=== PATIENT | female | born 1960 | race Caucasian/White ===

== ENCOUNTER 2016-05-25 17:32 | Emergency (ER) | payer OTHER ==
--- NOTE | 2016-05-25 17:35 | PDOC ---
History of Present Illness <Ct Stock - Last Filed: 05/25/16 18:59> - General History Source: EMS, Family Exam Limitations: Clinical Condition - History of Present Illness Initial Comments: 05/25/16 18:48 Patient seen and evaluated immediately upon arrival. 55-year-old female with history of diabetes, hypertension, hyperlipidemia, end- stage renal disease on hemodialysis Sunday/Sunday/Sunday, brought in by EMS for sudden onset of confusion and speech difficulty that occurred between 12:30 PM and 4 PM in the afternoon on the day of arrival. No trauma is reported. Patient was noted to have difficulty following commands and communicating with family members and emergency providers. REVIEW OF SYSTEMS Unable to obtain due to patient's clinical condition EXAMINATION CONSTITUTIONAL: Awake, alert, morbidly obese, does not follow commands HEAD: Normocephalic; atraumatic EYES: PERRL; patient is able to track MDs face ENMT: + Significant soft tissue swelling of the left side of the face (known to be old); normal oropharynx NECK: Supple; non-tender; no JVD CARD: Normal S1, S2; no murmurs, rubs, or gallops RESP: Normal chest excursion with respiration; breath sounds clear and equal bilaterally; no wheezes, rhonchi, or rales ABD: Soft, non-distended; non-tender; no palpable organomegaly, no palpable hernias EXT: Normal ROM in all four extremities; non-tender to palpation; distal pulses intact SKIN: Warm, dry, no rash NEURO: Patient is awake and alert; + receptive and expressive aphasia; no pronation drift; patient is noted to be moving all extremities spontaneously; motor is 5 of 54; gait-deferred. <Fabiano Corbett - Last Filed: 05/25/16 19:05> - General Stated Complaint: STROKE Time Seen by Provider: 05/25/16 17:34 Past History <Ct Stock - Last Filed: 05/25/16 18:59> <Fabiano Corbett - Last Filed: 05/25/16 19:05> - Past Medical History Allergies/Adverse Reactions: Allergies Allergy/AdvReac Type Severity Reaction Status Date / Time No Known Allergies Allergy Verified 05/25/16 17:53 Home Medications: Ambulatory Orders Aspirin [ASA -] 81 mg PO DAILY 05/25/16 Clopidogrel Bisulfate [Plavix -] 75 mg PO DAILY 05/25/16 Furosemide [Lasix] 0 mg PO DAILY 05/25/16 Glipizide [Glipizide ER] 0 mg PO DAILY 05/25/16 Isosorbide Mononitrate [Imdur] 0 mg PO DAILY 05/25/16 Metoprolol Succinate [Toprol Xl] 0 mg PO DAILY 05/25/16 Oxycodone HCl 0 mg PO PRN PRN 05/25/16 Rosuvastatin Calcium [Crestor] 0 mg PO DAILY 05/25/16 Heart Score/ECG Review #1 ECG reviewed & interpreted by me at: 17:54 (Vent Rate: 79 bpm. Normal sinus rhythm. Left anterior fascicular block. Voltage criteria for left ventricular hypertrophy. T wave abnormality, consider lateral ischemia. Prolonged QT. ) <Ct Stock - Last Filed: 05/25/16 18:59> ED Treatment Course - LABORATORY CBC & Chemistry Diagram: 05/25/16 18:01 05/25/16 18:01 <Ct Stock - Last Filed: 05/25/16 18:59> - LABORATORY CBC & Chemistry Diagram: 05/25/16 18:01 05/25/16 18:01 <Fabiano Corbett - Last Filed: 05/25/16 19:05> Medical Decision Making - Critical Care Time Total Critical Care Time (minutes): 35 Critical Care Statement: The care of this patient involved high complexity decision making to prevent further life threatening deterioration of the patient 's condition and/or to evalute & treat vital organ system(s) failure or risk of failure. - Medical Decision Making 05/25/16 17:41 Call placed to [facility] at 17:40. Referred to answering service, awaiting callback. Dr. Sweeney returned call at 17:42, case discussed. EXAM: CT/HEAD CT (STROKE) Reviewed By: Dr. Phil Cross IMPRESSION: Large acute/subacute hematoma in the left temporal lobe measuring 4 x 2.5 cm with mild surrounding erythema. There is significant extracranial soft tissue swelling over the left side of the head extending inferiorly to over the left psychometric arch and the left cheek. Asymmetric prominence of the left masticular muscles relative to the right. Opacified left mastoid air cells without gross evidence of a fracture. Case discussed with Dr. Corbett, emergency room attending physician. Call placed to [facility] at 18:21. Case discussed, patient was accepted by Dr. Harris (Neurosurgery service at [facility]) and will be transferred to [facility]. <Ct Stock - Last Filed: 05/25/16 18:59> - Medical Decision Making 05/25/16 18:52 Patient is a 55-year-old female with multiple comorbidities who presents with sudden onset of confusion and aphasia. In the ER, patient is awake and alert, with both receptive and expressive aphasia, does not follow commands. CT of head reveals a 4 cm x 2 and half centimeter left temporal intracranial hemorrhage with surrounding edema without evidence of midline shift. Upon arrival, patient noted to be hypertensive with SBP of 190, requiring administration of labetalol-20 mg followed by 40 mg IV push for blood pressure control. Case discussed with neurosurgical resident at [facility] and the patient has been accepted for transfer. There is no indication for platelet transfusion at this time and noted to reverse antiplatelet therapy with aspirin and Plavix. There is no indication for endotracheal intubation at this time as the patient is protecting her airway and I do not foresee airway complications and route to [facility]. Will transfer. 05/25/16 19:04 Patient's condition has not changed. Blood pressures again noted to be going up at 161/88. Will initiate nicardipine drip at 5 mg an hour and we'll titrate as needed to systolic BP of 140. <Fabiano Corbett - Last Filed: 05/25/16 19:05> *DC/Admit/Observation/Transfer - Attestations Scribe Attestion: 05/25/16 17:37 [address]ation prepared by [address] Stock, acting as medical auditor for Fabiano Corbett MD. <Ct Stock - Last Filed: 05/25/16 18:59> - Transfer to Acute Care Facility Receiving Facility: [facility] Accepting Physician:: DR. Harris Transfer comment: 05/25/16 18:55 Consent obtained. <Fabiano Corbett - Last Filed: 05/25/16 19:05> Diagnosis at time of Disposition: Intracerebral hemorrhage Qualifiers: Intracerebral hemorrhage etiology: nontraumatic Cerebral hemorrhage location: cerebral hemisphere, unspecified portion Laterality: left Qualified Code(s): I61.2 - Nontraumatic intracerebral hemorrhage in hemisphere, unspecified - Discharge Dispostion Disposition: TRANSFER ACUTE CARE/OTHER HOSP Condition at time of disposition: Critical - Referrals Referrals: Samia High MD [Primary Care Provider] - NIH Stroke Scale - Last Known Well Date/Time & Onset Date Last Known Well: 05/25/16 Time Last Known Well: 12:30 - Initial Evaluation Level of consciousness: Alert Ask patient the month and their age: Both incorrect Ask patient to open & close eyes; make fist and let go: Both incorrect Best gaze (horizontal eye movement): Normal Best language (Describe picture, name items, read sentences): Severe aphasia Dysarthria (read several words): Near unintelligible or unable to speak <Fabiano Corbett - Last Filed: 05/25/16 19:05>
[2016-05-25] MEDS ORDERED: SODIUM CHLORIDE 1,000 ML IV SCH (17:45)
[2016-05-25] MEDS ORDERED: LABETALOL HCL 5 MG/1 ML (100MG/20 ML VIAL) IVPUSH ONE ×2 (18:00→18:24)
[2016-05-25 18:03] VITALS: BMI 34.9
[2016-05-25] MEDS ORDERED: LABETALOL HCL 5 MG/1 ML (200MG/40ML VIAL) IVPB ONE (18:07)
[2016-05-25 18:13] LABS: EOSINOPHIL 2.1 % (0-4.5); MCH 33.2 pg (25.7-33.7); MCHC 33.4 g/dl (32.0-36.0); MEAN CELL VOLUME 99.5 fl (80-96); MEAN PLT VOLUME 9.9 fl (7.5-11.1); NEUTROPHILS 61.7 % (42.8-82.8); PLATELET COUNT 152 K/MM3 (134-434); RDW 15.2 % (11.6-15.6); WHITE BLOOD COUNT 7.1 K/mm3 (4.0-10.0)
[2016-05-25 18:40] LABS: INR 1.02 (0.82-1.09); PROTHROMBIN TIME (PATIENT) 11.2 SEC (9.98-11.88)
[2016-05-25 18:57] VITALS: TEMP 98.2
[2016-05-25] MEDS ORDERED: niCARdipine HCL 25 MG/10 ML AMPUL IVPB ONE (19:05)
[2016-05-25 19:10] LABS: ALBUMIN 3.4 g/dl (3.4-5.0); BILIRUBIN,TOTAL 0.8 mg/dL (0.2-1.0); CALCIUM 8.4 mg/dL (8.5-10.1)
[2016-05-25] MEDS ORDERED: NICARDIPINE 25 MG in DEXTROSE 5%-WATER - 240 ML IVPB SCH (19:15)
[2016-05-25 19:20] LABS: COCKROFT - GAULT 11.951; TROPONIN I 0.02 ng/ml (0.00-0.05)
[2016-05-25 19:23] LABS: CREATININE 7.9 mg/dL (0.55-1.02)
[2016-05-25 19:36] VITALS: BP 161/88; PULSE 74
--- NOTE | 2016-05-26 09:09 | EKG ---
Test Reason : Blood Pressure : / mmHG Vent. Rate : 079 BPM Atrial Rate : 079 BPM P-R Int : 172 ms QRS Dur : 094 ms QT Int : 414 ms P-R-T Axes : 043 -47 108 degrees QTc Int : 474 ms NORMAL SINUS RHYTHM LEFT ANTERIOR FASCICULAR BLOCK VOLTAGE CRITERIA FOR LEFT VENTRICULAR HYPERTROPHY T WAVE ABNORMALITY, CONSIDER LATERAL ISCHEMIA PROLONGED QT ABNORMAL ECG NO PREVIOUS ECGS AVAILABLE Confirmed by MARLO MCCARTNEY MD ([id number]) on 05/26/2016 9:09:41 AM Referred By: Confirmed By:MARLO MCCARTNEY MD
== END 2016-05-25 19:13 | disposition short-term general hospital (02) ==
LOC: JER 17:32
PROC: 3E0337Z Introduction of Electrolytic and Water Balance Substance into Peripheral Vein, Percutaneous Approach (ICD-10-PCS; principal; 2016-05-25)
PROC: 3E033GC Introduction of Other Therapeutic Substance into Peripheral Vein, Percutaneous Approach (ICD-10-PCS; 2016-05-25)
PROC: 3E033GC Introduction of Other Therapeutic Substance into Peripheral Vein, Percutaneous Approach (ICD-10-PCS; 2016-05-25)
PROC: 3E033GC Introduction of Other Therapeutic Substance into Peripheral Vein, Percutaneous Approach (ICD-10-PCS; 2016-05-25)
DX: I61.2 Nontraumatic intracerebral hemorrhage in hemisphere, unspecified (principal); I69.220 Aphasia following other nontraumatic intracranial hemorrhage; I13.11 Hypertensive heart and chronic kidney disease without heart failure, with stage 5 chronic kidney disease, or end stage renal disease; N18.6 End stage renal disease; Z99.2 Dependence on renal dialysis; E78.5 Hyperlipidemia, unspecified; E78.00 Pure hypercholesterolemia, unspecified; E11.9 Type 2 diabetes mellitus without complications; Z79.84 Long term (current) use of oral hypoglycemic drugs
CPT/HCPCS: 36415; 70450-TC; 71010-TC; 80053; 82465; 82550; 82553; 83718; 83721; 84478; 84484; 85025; 85610; 86850; 86900; 86901; 93005; 93010; 99285-25